=== PATIENT | male | born 2000 | race Caucasian/White ===

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

== ENCOUNTER → 2020-01-31 10:01 | Outpatient (CLI) | payer MEDICAID, SELFPAY ==
[2020-01-14 11:42] VITALS: BMI 28.8
--- NOTE | 2020-01-31 10:01 | ECHOD_ITS ---
Reason For Study: CHEST PAIN, PALPITATIONS Procedure This was a 2D Doppler, Color Flow transthoracic echocardiogram. Patient refused IV for bubble study. Exam performed in department. Left Ventricle Normal LV size. The estimated ejection fraction is 55 %. Normal diastology for age. No regional wall motion abnormalities noted. Right Ventricle Normal RV size. Normal systolic function. Atria Normal left atrium. Normal right atrium. No doppler evidence for ASD. Mitral Valve There is no mitral valve stenosis. No mitral valve insufficiency. Tricuspid Valve There is no tricuspid stenosis. Trivial tricuspid valve insufficiency. Aortic Valve Trisinus/trileaflet aortic valve. There is no aortic stenosis. No aortic valve insufficiency. Pulmonic Valve There is no pulmonic valvular stenosis. Trivial pulmonic valve insufficiency. Great Vessels Normal aortic root. Pericardium/Pleural No pericardial effusion. MMode/2D Measurements & Calculations LVIDd: 5.5 cm IVSd: 0.85 cm Ao root diam: 3.0 cm LVIDs: 3.8 cm LVPWd: 0.97 cm RVDd: 3.7 cm FS: 31.0 % LAV(MOD-bp): 51.2 ml LVAd ap4: 36.5 cm2 SV(MOD-sp4): 65.8 ml LAV(MOD-bp) Indexed: 22.0 ml/m2 EDV(MOD-sp4): 126.2 ml LAV(MOD-sp2): 40.6 ml EDV(sp4-el): 126.2 ml LAV(MOD-sp4): 55.8 ml LVAs ap4: 23.4 cm2 ESV(MOD-sp4): 60.4 ml ESV(sp4-el): 57.5 ml EF(MOD-sp4): 52.1 % EF(sp4-el): 54.4 % SV(sp4-el): 68.7 ml LA A4 area: 19.3 cm2 LA dimension(2D): 3.5 cm RA A4 area: 18.2 cm2 Time Measurements MV dec time: 0.23 sec Doppler Measurements & Calculations MV E max scar: 78.7 cm/sec Lat Peak E' Scar: 15.8 cm/sec Med Peak E' Scar: 13.4 cm/sec MV A max scar: 53.2 cm/sec E/E' lat: 5.0 E/E' med: 5.9 MV E/A: 1.5 Ao V2 max: 116.8 cm/sec LV V1 max: 82.7 cm/sec PA V2 max: 111.9 cm/sec Ao max P.5 mmHg LV V1 max P.7 mmHg PI end-d scar: 70.9 cm/sec TR max scar: 238.6 cm/sec TR max P.8 mmHg Interpretation Summary The estimated ejection fraction is 55 %. Normal diastology for age. Trivial tricuspid valve insufficiency. Ordering Physician: Cecille Haywood Referring Physician: DELONTE BENNETT Performed By: Nadiya Mendez RDCS
== END ==
PROVIDERS: PCP Family Medicine; Referring Provider Specialist; Visit Provider Specialist
DX: R07.9 Chest pain, unspecified (principal); R00.2 Palpitations
CPT/HCPCS: 93306

== ENCOUNTER 2021-08-15 19:48 | Emergency (ER) | payer MEDICAID, SELFPAY ==
[2021-08-15 19:49] VITALS: BP 118/69; PULSE 100; RESP 14; TEMP 36.3; O2SAT 100; BMI 27.3
--- NOTE | 2021-08-15 20:04 | ED.RN ---
patient came out and said he had a family emergency and he had to leave and he would be back
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
== END 2021-08-15 20:22 | disposition left against medical advice (07) ==
LOC: ED 20:21
PROVIDERS: PCP Family Medicine
DX: M79.646 Pain in unspecified finger(s) (principal); F17.210 Nicotine dependence, cigarettes, uncomplicated; F12.90 Cannabis use, unspecified, uncomplicated
CPT/HCPCS: 99281 ×2; 99282